=== PATIENT | male | born 1955 | race Caucasian/White ===

== ENCOUNTER 2022-11-02 14:20 | Emergency (ER) | payer OTHER, SELFPAY ==
[2022-11-02 14:42] VITALS: BP 162/103; PULSE 74; RESP 16; TEMP 36.8; O2SAT 96; BMI 26.6
--- NOTE | 2022-11-02 14:47 | DI.US.S_ITS ---
PROCEDURE: US PERIPH VENOUS LOW EXTREM LT INDICATIONS: PAIN AND SWELLING TECHNIQUE: Real-time imaging, as well as color and pulse Doppler interrogation, were performed of the lower extremity deep veins from the inguinal ligament to the popliteal fossa. COMPARISON: None. FINDINGS: The common femoral, femoral and popliteal veins were interrogated. There is an occlusive thrombus involving the popliteal vein . The more proximal deep venous structures are patent. IMPRESSION: Occlusive deep venous thrombosis involving the left popliteal vein. Dictated by: Calvin Quintero M.D. on 11/02/2022 at 15:15 Approved by: Calvin Quintero M.D. on 11/02/2022 at 15:17
[2022-11-02 18:01] VITALS: BP 158/93; PULSE 70; O2SAT 98
--- NOTE | 2022-11-02 18:13 | ED.EXTPRO ---
HPI - Extremity Problem General Chief complaint: Extremity Problem,Nontraumatic Stated complaint: POSSIBLE BLOOD CLOT Time Seen by Provider: 11/02/22 18:13 Source: patient Mode of arrival: Ambulatory History of Present Illness HPI Narrative: 67M smoker without chronic medical history presents at the request of his PCP for evaluation of a painful, swollen, left calf for the past week in the absence of known injury. He denies any long distance travel, history of clot or cancer. He denies any chest pain but does admit he has been a bit short of breath since yesterday. He is not dizzy nor weak or lightheaded. He denies fever or chills and has no hemoptysis. He denies nausea, vomiting or diarrhea. Related Data Previous Rx's Medication Instructions Recorded apixaban 5 mg (74 tabs) tablets in See Rx Instructions PO .COMPLEX 11/02/22 a dose pack ([employer] DVT-PE Treat #74 ea 30D Start) Allergies Allergy/AdvReac Type Severity Reaction Status Date / Time No Known Drug Allergies Allergy Verified 11/02/22 20:15 Review of Systems Review of Systems Narrative: GENERAL: Denies chills, fatigue, malaise, fever, sweats. HEENT: Denies sinus pain, ear pain, sore throat, difficulty swallowing, dizziness. RESPIRATORY: See HPI CARDIOVASCULAR: See HPI GASTROINTESTINAL: Denies nausea, vomiting, abdominal pain, diarrhea, constipation, melena. : Denies dysuria, frequency, incontinence, hematuria, urinary retention. MUSCULOSKELETAL: See HPI SKIN: Denies rash, skin lesions, or other NEUROLOGIC: Denies weakness, headache, numbness, change in speech, confusion, seizures, incoordination. PSYCHIATRIC: No concerning psychosocial issues. 12 point review of systems is negative except for those stated above Patient History Social History Smoking Status: Current every day smoker Smoking Status: Current every day smoker tobacco type: cigarettes Substance Use Type: does not use Exam Narrative Exam Narrative: GENERAL: [67] year old patient appears stated age. Well-developed patient, in mild distress. HEAD: Atraumatic. Normocephalic. EYES: Pupils equal round and reactive. Extraocular motions intact. No scleral icterus. No injection or drainage. ENT: Nose without bleeding, purulent drainage. Throat without erythema, tonsillar hypertrophy or exudate. Airway patent. NECK: Trachea midline. Non tender CARDIOVASCULAR: Regular rate and rhythm without murmurs, gallops, or rubs. RESPIRATORY: Clear to auscultation. Breath sounds equal bilaterally. No wheezes, rales, or rhonchi. GASTROINTESTINAL: Abdomen soft, non-tender, nondistended. EXTREMITIES: Left calf swelling and erythema BACK: Nontender without deformity or crepitance. No flank tenderness. NEURO: AOx3. SKIN: No rash or erythema of visible areas Initial Vital Signs Initial Vital Signs: Vital Signs Temperature 98.2 F 11/02/22 14:42 Pulse Rate 74 11/02/22 14:42 Respiratory Rate 16 11/02/22 14:42 Blood Pressure 162/103 H 11/02/22 14:42 Pulse Oximetry 96 11/02/22 14:42 Oxygen Delivery Method Room Air 11/02/22 14:42 Course Orders Ordered: Discontinued Medications Apixaban (Apixaban 5 Mg Tablet) 10 mg PO NOW ONE Stop: 11/02/22 19:01 Last Admin: 11/02/22 19:17 Dose: 10 mg Documented By: AP Vital Signs Vital signs: Vital Signs - 8 hr 11/02/22 14:42 11/02/22 18:01 Temperature 98.2 F Pulse Rate 74 70 Respiratory Rate 16 Blood Pressure 162/103 H 158/93 H Pulse Oximetry 96 98 Oxygen Delivery Method Room Air Room Air MDM - Extremity (Nontraumatic) Lab Data 11/02/22 18:42 11/02/22 18:42 Labs: Lab Results 11/02/22 11/02/22 11/02/22 Range/Units 18:42 18:42 18:42 WBC 7.2 (4.5-11.0) X10^3/uL RBC 4.07 L (4.5-5.9) X10^6/uL Hgb 13.9 (13.5-17.5) g/dL Hct 41.3 (41-53) % MCV 101.3 H (80-100) fL MCH 34.1 H (26-34) PG MCHC 33.7 (30-36) % RDW 16.7 H (11.6-14.8) % Plt Count 330 (150-400) X10^3/uL Neut % (Auto) 46.5 L (50-75) % Lymph % (Auto) 37.3 (25-40) % [place] % (Auto) 7.6 (3-14) % Eos % (Auto) 7.5 H (2-4) % Baso % (Auto) 1.1 (0-2) % Neut # (Auto) 3400 (8156-8892) /uL Lymph # (Auto) 2700 (7794-0110) /uL [place] # (Auto) 500 (0-900) /uL Eos # (Auto) 500 H (0-450) /uL Baso # (Auto) 100 (0-100) /uL PT 11.8 (10.1-12.7) SECONDS INR 1.0 (0.9-1.3) APTT 27 (26-36) SECONDS Sodium 139 (137-145) mmol/L Potassium 3.9 (3.4-5.1) mmol/L Chloride 107 (98-107) mmol/L Carbon Dioxide 27 (22-32) mmol/L BUN 11 (9-20) mg/dL Creatinine 0.83 (0.66-1.25) mg/dL Estimated GFR > 60 (>60) mL/min BUN/Creatinine Ratio 13.3 (6-22) Glucose 96 (80-110) mg/dL Calcium 8.9 (8.4-10.2) mg/dL Magnesium 1.9 (1.6-2.3) mg/dL Total Bilirubin 0.9 (0.2-1.3) mg/dL AST 24 (17-59) IU/L ALT 19 (<50) IU/L Alkaline Phosphatase 103 (38-126) U/L Total Creatine Kinase 76 (55-170) U/L CK-MB (CK-2) TNP CK-MB (CK-2) Rel Index TNP Troponin I < 0.012 (0.01-0.034) ng/mL NT-Pro-B Natriuret Pep 178 H (<125) pg/mL Total Protein 6.7 (6.3-8.2) g/dL Albumin 3.7 (3.5-5.0) g/dL Globulin 3.0 (1.7-4.1) g/dL Albumin/Globulin Ratio 1.2 (1.0-2.8) MDM Narrative Medical decision making narrative: CC: 67-year-old male with left calf pain and swelling Complicating co-morbidities: Age, smoker Data collected from: Patient Medical records reviewed: Prior notes reviewed in our EMR Differential considered, but not limited to: DVT, cellulitis, COPD versus pulmonary embolism versus other Exam documented above, pertinent findings include: Left calf swollen, erythematous, warm. No tachycardia, no increased work of breathing, lung sounds clear Lab Test results independently reviewed as above. Pertinent findings: Normal troponin, very slight increase in BNP Independently reviewed EKG as above Imaging studies independently reviewed: CTA notes bilateral PE, no evidence of right heart strain, left lower extremity ultrasound demonstrates DVT of the popliteal Scores Used:SPESI Treatments: Eliquis Discussion: Patient with left lower extremity pain, swelling and redness in the absence of injury, ultrasound demonstrates DVT. Patient did mention some shortness of breath that he thinks might have started yesterday. He is in no respiratory distress and denies any chest pain. No evidence of right heart strain. Vitals are stable. Eliquis initiated, no indication for hospitalization or transfer. Patient given extensive return precautions including chest pain, worsening shortness of breath, near-syncope, syncope, or other concerning symptoms. Disposition: see below, along with detailed discharge instructions that have been reviewed with patient as well as indications for ED re-evaluation and additional outpatient follow up Discharge Plan Departure Patient Disposition: Home Clinical Impression: Deep vein thrombosis of lower extremity, Pulmonary embolism Instructions: DI for Deep Vein Thrombosis, DI for Pulmonary Embolism Activity Restrictions/Additional Instructions: *You have been diagnosed with [Left leg DVT and pulmonary embolism. ] *What to do: *Please continue to take your regular medications as directed. [ x] New medication prescriptions sent to your pharmacy: [ [facility]] [ ] New medication written as a paper prescription [ ] No new medications given *Please follow up with your primary care provider in 2-3 days, call for an appointment. Let them know you were seen in the Emergency Department and that we ask that you be seen in follow up. We will electronically transmit a record of today's note if your PCP is in our system * as we discussed please do a Google search for Eliquis Coupon to get signed up for a *Return to Emergency Department if you should have any new, worsening or concerning symptoms, such as [fever greater than 101 F, shaking chills, worsening pain, persistent vomiting or other bothersome symptoms] Prescriptions: New Eliquis DVT-PE Treat 30D Start 5 mg (74 tabs) tablets,dose pack See Rx Instructions .ROUTE .COMPLEX Qty: 74 0RF Rx Instructions: orally per package directions Referrals: Kiet Lester MD [Primary Care Provider] - Stand Alone Forms: Patient Portal/API
--- NOTE | 2022-11-02 18:15 | DI.CT.S_ITS ---
PROCEDURE: CT ANGIO CHEST PE PROTOCOL INDICATIONS: SOB, newly discovered LLE DVT TECHNIQUE: After the administration of intravenous contrast, 2 mm thick sections acquired from the pulmonary apices to the posterior costophrenic angles. 3-dimensional maximum intensity projection (MIP) coronal and sagittal reformats were then acquired through the thorax. For radiation dose reduction, the following was used: automated exposure control, adjustment of mA and/or kV according to patient size. COMPARISON: None. FINDINGS: Image quality: Excellent. Pulmonary arteries: Segmental and subsegmental pulmonary emboli bilaterally. There is moderate embolic burden. RV to LV ratio 1. No pulmonary infarct demonstrated. Lungs and pleura: Minimal dependent ground-glass opacity. No pleural effusions or pneumothorax. Secretion in the trachea. Mediastinum: Heart size is normal, without pericardial effusion. No mediastinal or hilar adenopathy. Thoracic aorta is normal in caliber and enhancement. Esophagus is normal in caliber, without hiatal hernia. Bones and chest wall: No suspicious bony lesions. Ribs and thoracic spine appear intact throughout. Thyroid gland is unremarkable. No axillary or supraclavicular adenopathy. Abdomen: Visualized upper abdominal solid organs appear normal in the early arterial phase of enhancement. Small cyst in the left lobe of the liver. IMPRESSION: 1. Bilateral segmental and subsegmental pulmonary emboli. Moderate embolic burden. RV/LV ratio 1. 2. No acute airspace opacity. Trace secretions in the trachea. Comment: Findings were discussed with Bubba Zambrano at time of dictation. Dictated by: Krystian Castellano M.D. on 11/02/2022 at 20:03 Approved by: Krystian Castellano M.D. on 11/02/2022 at 20:08
[2022-11-02 18:50] LABS: Add Manual Diff / Slide Review NO; Basophils Absolute Auto 100 /uL (0-100); Basophils Percent Auto 1.1 % (0-2); Eosinophils Absolute Auto 500 /uL (0-450); Eosinophils Percent Auto 7.5 % (2-4); Hematocrit 41.3 % (41-53); Hemoglobin 13.9 g/dL (13.5-17.5); Lymphocytes Absolute Auto 2700 /uL (1100-4500); Lymphocytes Percent Auto 37.3 % (25-40); Mean Corpuscular HGB Conc 33.7 % (30-36); Mean Corpuscular Hemoglobin 34.1 PG (26-34); Mean Corpuscular Volume 101.3 fL (80-100); Monocytes Absolute Auto 500 /uL (0-900); Monocytes Percent Auto 7.6 % (3-14); Neutrophils Absolute Auto 3400 /uL (1500-7000); Neutrophils Percent Auto 46.5 % (50-75); Platelet Count 330 X10^3/uL (150-400); Red Blood Cell Count 4.07 X10^6/uL (4.5-5.9); Red Cell Distribution Width 16.7 % (11.6-14.8); White Blood Cell Count 7.2 X10^3/uL (4.5-11.0)
[2022-11-02 18:58] LABS: Prothrombin Time 11.8 SECONDS (10.1-12.7)
[2022-11-02 19:01] LABS: PTT Partial Thromboplastin Tim 27 SECONDS (26-36)
[2022-11-02 19:04] LABS: Alanine Aminotransferase 19 IU/L (<50); Albumin 3.7 g/dL (3.5-5.0); Albumin Globulin Ratio 1.2 (1.0-2.8); Alkaline Phosphatase 103 U/L (38-126); Aspartate Aminotransferase 24 IU/L (17-59); BUN Creatinine Ratio 13.3 (6-22); Bilirubin Total 0.9 mg/dL (0.2-1.3); Blood Urea Nitrogen 11 mg/dL (9-20); Calcium 8.9 mg/dL (8.4-10.2); Carbon Dioxide 27 mmol/L (22-32); Chloride 107 mmol/L (98-107); Creatine Kinase 76 U/L (55-170); Estimated Glomerular Filt Rate > 60 mL/min (>60); Glucose 96 mg/dL (80-110); HEMOLYSIS < 15 (0-50); Magnesium 1.9 mg/dL (1.6-2.3); Potassium 3.9 mmol/L (3.4-5.1); Sodium 139 mmol/L (137-145); Total Protein 6.7 g/dL (6.3-8.2)
[2022-11-02 19:16] LABS: NT-proBNP (BNP-Adult 18+) 178 pg/mL (<125); Troponin I < 0.012 ng/mL (0.01-0.034)
[2022-11-02] MEDS: APIXABAN 5 MG TABLET 10 MG PO (19:17)
--- NOTE | 2022-11-02 20:25 | PC.NURSE ---
Reports faxed to Dr. Lester for continuity of care.
== END 2022-11-02 20:17 | disposition home or self-care (01) ==
PROVIDERS: Emergency Provider Emergency Medicine; PCP Family Medicine
DX: I82.462 Acute embolism and thrombosis of left calf muscular vein (principal); I26.99 Other pulmonary embolism without acute cor pulmonale
CPT/HCPCS: 36415; 71275; 80053; 82550; 83735; 83880; 84484; 85025; 85610; 85730; 93971; 99284; Q9967